=== PATIENT | male | born 1950 | race Caucasian/White ===

== ENCOUNTER 2017-04-16 14:37 | Inpatient (IN) | payer MEDICARE, OTHER ==
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
--- NOTE | ~2017-04-16 | EKG ---
PATIENT: ADAM BEVERLY UNIT #: [id number] Ventricular Rate: 65 BPM Atrial Rate: 65 BPM P-R Interval: 166 ms QRS Duration: 94 ms Q-T Interval: 412 ms QTC Calculation(Bezet): 428 ms P [place]: 60 degrees Calculated R [place]: -21 degrees Calculated T [place]: 39 degrees Diagnosis Line: Normal sinus rhythm Diagnosis Line: Normal ECG Diagnosis Line: When compared with ECG of 07-DEC-2012 00:12, Diagnosis Line: T wave inversion no longer evident in Anterior Diagnosis Line: leads Diagnosis Line: Confirmed by ELIAZAR CORONA MD ([id number]) on Diagnosis Line: 04/17/2017 10:43:07 PM INTERPRETING MD: GARY
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
--- NOTE | ~2017-04-16 | CR150 ---
[facility] A Service [facility] RADIOLOGY TEXT RESULTS PATIENT: ADAM BEVERLY LOCATION: C4 453- : 50 UNIT #: [id number] AGE: [address]: Lissa Hilliard MD SEX: M ORDER DR: [id number] [address] [place], [place] [address] [id number] I MR#: [id number] Acc #: [id number] NAME: ADAM BEVERLY : 1950 SEX: M STUDY DATE/TIME: 04/18/2017 16:21 UNIT: C4B ROOM: [facility] STUDY DESCRIPTION: CR Hip Min 2 Views Lt Attending Physician: Lissa Hilliard M.D. Ordering Physician: Liborio Hernandez M.D. Primary Care Physician: Manuel North M.D. MEDICAL IMAGING REPORT This report is preliminary unless electronic signature is present EXAM Left hip 2 views COMPARISON Two views of the left hip dated April 16, 2017 INDICATION Intraoperative valuation for open reduction internal fixation of left femoral neck fracture. FINDINGS A total of 2 images were obtained. Total fluoro time was 1 minute and 32 seconds. Intraoperative images demonstrate 3 lag screws passing through the intertrochanteric region of the left femur and terminating in the femoral head. Femoral neck fracture appears anatomically aligned. No evidence of dislocation or hardware complication. The left hip appears anatomically aligned. IMPRESSION Intraoperative evaluation for open reduction internal fixation of a left femoral neck fracture. No evidence of complication. Dictated by... Blanco Friedman M.D. THIS IS AN ELECTRONICALLY VERIFIED REPORT Blanco Friedman M.D. at 04/23/2017 8:12 PM SANJAY/leeanna [facility] A Service [facility] RADIOLOGY TEXT RESULTS PATIENT: ADAM BEVERLY LOCATION: C4 : [birth year] UNIT #: [id number] AGE: [address]: Lissa Hilliard MD SEX: M ORDER DR: TD: 04/18/2017 23:08 JOB #: [id number] MEDICAL IMAGING REPORT Page 1 of 1 COPY
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
[~2017-04-16 14:37] MED LIST: ARIXTRA7.5 MG/0.6 SQ; ASPIRIN EC81 M1 PO; ASPIRIN PO; ASPIRIN81 M2 PO; CAL MAG ZINC +1 EAC1 PO; COUMADIN5 MG PO; LOVENOX40 MG/0.4 INJ; MULTI COMPLETE1 EACH PO; MULTIPLE VITAMI1 T11 PO; OS-CAL 500 + D500 MG PO; OSTEO BI-FLEX1 EAC1 PO; PANTOPRAZOLE SO40 MG PO; SAW PALMETTO PO; WARFARIN SODIUM10 M1 PO
[2017-04-16 15:31] LABS: BASOPHIL# 0.1 X10e3 (0-0.3); BASOPHIL% 1.1 % (0-2.5); DIFF IND YES; EOSINOPHIL# 0.2 X10e3 (0-0.7); HEMATOCRIT 24.6 % (38.0-50.0); HEMOGLOBIN 7.5 gm/dL (13.0-16.0); LYMPHOCYTE# 0.8 X10e3 (1.0-3.5); LYMPHOCYTE% 9.7 % (17.0-45.0); MEAN CELL VOLUME 66.6 FL (83-96); MEAN CORPUSCULAR HEMOGLOBIN 20.2 PG (28-34); MEAN CORPUSCULAR HGB CONC 30.4 g/dL (30-36); MEAN PLATELET VOLUME 6.9 FL (6.5-11.5); MONOCYTE# 0.4 X10e3 (0-1.0); MONOCYTE% 4.3 % (3.0-12.0); NEUTROPHIL# 6.9 X10e3 (1.5-7.1); NEUTROPHIL% 82.9 % (40-75); PLATELET COUNT 285 X10e3 (140-420); RED CELL DISTRIBUTION WIDTH 17.5 % (11.0-15.5); WHITE BLOOD COUNT 8.4 X10e3 (4.0-10.5)
[2017-04-16 15:38] LABS: INR 1.4; PARTIAL THROMBOPLASTIN TIME 21.9 SECONDS (23.5-31.3); PROTHROMBIN TIME (PATIENT) 15.4 SECONDS (9.6-11.5)
[2017-04-16 15:56] LABS: ACANTHOCYTES PRESENT; ANISOCYTOSIS MOD; BUN/CREATININE RATIO 13.63; CALCIUM SERUM 9.3 mg/dL (8.4-10.2); CREATININE SERUM 1.1 mg/dL (0.6-1.4); GLOM FILT RATE Estimated 69.6 mL/min (>60); HYPOCHROMIA MOD; MICROCYTOSIS MOD; PLATELET ESTIMATE NORMAL (NORMAL); POTASSIUM 3.9 mmol/L (3.5-5.1)
[2017-04-16 15:57] LABS: OVALOCYTES PRESENT; POIKILOCYTOSIS MOD
[2017-04-16 15:59] LABS: SCHISTOCYTES PRESENT; TEAR DROP CELLS PRESENT
[2017-04-16] MEDS ORDERED: COUMADIN PO (21:04)
[2017-04-16] MEDS ORDERED: PANTOPRAZOLE SO40 MG PO (21:05)
[2017-04-16] MEDS ORDERED: CENTURY ADULTS1 EACH PO (21:07)
[2017-04-16] MEDS ORDERED: CALCIUM MAGNES1 EACH (21:07)
[2017-04-16] MEDS ORDERED: [UNRECOGNIZED DRUG - REMARK] (21:08)
[2017-04-17 06:22] LABS: URINE SOURCE CLEAN CATCH
[2017-04-17 06:29] LABS: URINE APPEARANCE CLEAR; URINE BILIRUBIN NEG (NEG); URINE BLOOD NEG (NEG); URINE COLOR YELLOW; URINE GLUCOSE NEG (NEG); URINE KETONE 1+ (NEG); URINE LEUKOCYTE ESTERASE NEG (NEG); URINE NITRATE NEG (NEG); URINE PH 7.5 (5-8); URINE PROTEIN NEG (NEG); URINE SPECIFIC GRAVITY 1.022 (1.003-1.035)
[2017-04-17 08:04] LABS: BASOPHIL# 0.2 X10e3 (0-0.3); BASOPHIL% 3.5 % (0-2.5); EOSINOPHIL# 0.4 X10e3 (0-0.7); EOSINOPHIL% 5.4 % (0.0-7.0); HEMATOCRIT 28.6 % (38.0-50.0); HEMOGLOBIN 8.8 gm/dL (13.0-16.0); LYMPHOCYTE# 0.7 X10e3 (1.0-3.5); LYMPHOCYTE% 10.7 % (17.0-45.0); MEAN CELL VOLUME 69.5 FL (83-96); MEAN CORPUSCULAR HEMOGLOBIN 21.3 PG (28-34); MEAN CORPUSCULAR HGB CONC 30.6 g/dL (30-36); MEAN PLATELET VOLUME 6.7 FL (6.5-11.5); MONOCYTE# 0.5 X10e3 (0-1.0); MONOCYTE% 7.6 % (3.0-12.0); NEUTROPHIL% 72.8 % (40-75); PLATELET COUNT 219 X10e3 (140-420); RED BLOOD COUNT 4.11 X10e (3.90-5.60); RED CELL DISTRIBUTION WIDTH 20.1 % (11.0-15.5); WHITE BLOOD COUNT 6.9 X10e3 (4.0-10.5)
[2017-04-17 08:07] LABS: DIFF IND NO
[2017-04-17 08:18] LABS: INR 1.7; PROTHROMBIN TIME (PATIENT) 18.6 SECONDS (9.6-11.5)
[2017-04-17 08:33] LABS: CALCIUM SERUM 8.5 mg/dL (8.4-10.2); GLOM FILT RATE Estimated 78.1 mL/min (>60); POTASSIUM 3.8 mmol/L (3.5-5.1)
[2017-04-18 05:01] LABS: HEMATOCRIT 29.1 % (38.0-50.0); MEAN CELL VOLUME 68.6 FL (83-96); MEAN CORPUSCULAR HEMOGLOBIN 21.1 PG (28-34); MEAN CORPUSCULAR HGB CONC 30.8 g/dL (30-36); MEAN PLATELET VOLUME 6.7 FL (6.5-11.5); RED BLOOD COUNT 4.24 X10e (3.90-5.60); RED CELL DISTRIBUTION WIDTH 20.4 % (11.0-15.5); WHITE BLOOD COUNT 8.8 X10e3 (4.0-10.5)
[2017-04-18 06:05] LABS: ALBUMIN SERUM 3.2 g/dL (3.5-5.0); BILIRUBIN,TOTAL 2.3 mg/dL (0.2-2.0); CALCIUM SERUM 8.4 mg/dL (8.4-10.2); CREATININE SERUM 0.9 mg/dL (0.6-1.4); GLOM FILT RATE Estimated 88.7 mL/min (>60); POTASSIUM 3.8 mmol/L (3.5-5.1); PROTEIN TOTAL SERUM 6.6 g/dL (6.0-8.3)
[2017-04-18 10:06] LABS: INR 1.5; PROTHROMBIN TIME (PATIENT) 16.3 SECONDS (9.6-11.5)
[2017-04-19 03:28] LABS: BASOPHIL% 0.1 % (0-2.5); EOSINOPHIL% 0.1 % (0.0-7.0); HEMATOCRIT 28.5 % (38.0-50.0); HEMOGLOBIN 8.6 gm/dL (13.0-16.0); LYMPHOCYTE# 0.6 X10e3 (1.0-3.5); LYMPHOCYTE% 8.3 % (17.0-45.0); MEAN CELL VOLUME 69.6 FL (83-96); MEAN CORPUSCULAR HGB CONC 30.3 g/dL (30-36); MEAN PLATELET VOLUME 7.2 FL (6.5-11.5); MONOCYTE# 0.7 X10e3 (0-1.0); MONOCYTE% 8.8 % (3.0-12.0); NEUTROPHIL# 6.2 X10e3 (1.5-7.1); NEUTROPHIL% 82.7 % (40-75); PLATELET COUNT 231 X10e3 (140-420); RED BLOOD COUNT 4.09 X10e (3.90-5.60); RED CELL DISTRIBUTION WIDTH 20.9 % (11.0-15.5); WHITE BLOOD COUNT 7.4 X10e3 (4.0-10.5)
[2017-04-19 03:29] LABS: DIFF IND NO
[2017-04-19 03:45] LABS: INR 1.4; PROTHROMBIN TIME (PATIENT) 14.5 SECONDS (9.6-11.5)
[2017-04-19 03:53] LABS: CREATININE SERUM 1.2 mg/dL (0.6-1.4); GLOM FILT RATE Estimated 62.7 mL/min (>60); POTASSIUM 4.5 mmol/L (3.5-5.1)
[2017-04-20 04:05] LABS: INR 1.2; PROTHROMBIN TIME (PATIENT) 12.7 SECONDS (9.6-11.5)
[2017-04-20 04:13] LABS: BUN/CREATININE RATIO 17.77; CALCIUM SERUM 7.8 mg/dL (8.4-10.2); CREATININE SERUM 0.9 mg/dL (0.6-1.4); GLOM FILT RATE Estimated 88.7 mL/min (>60)
[2017-04-20 08:12] LABS: BASOPHIL# 0.1 X10e3 (0-0.3); BASOPHIL% 1.2 % (0-2.5); EOSINOPHIL# 0.7 X10e3 (0-0.7); EOSINOPHIL% 8.2 % (0.0-7.0); HEMATOCRIT 28.8 % (38.0-50.0); LYMPHOCYTE% 25.3 % (17.0-45.0); MEAN CELL VOLUME 69.6 FL (83-96); MEAN CORPUSCULAR HEMOGLOBIN 21.8 PG (28-34); MEAN CORPUSCULAR HGB CONC 31.3 g/dL (30-36); MEAN PLATELET VOLUME 6.7 FL (6.5-11.5); MONOCYTE# 0.8 X10e3 (0-1.0); MONOCYTE% 9.8 % (3.0-12.0); NEUTROPHIL# 4.4 X10e3 (1.5-7.1); NEUTROPHIL% 55.5 % (40-75); PLATELET COUNT 263 X10e3 (140-420); RED BLOOD COUNT 4.14 X10e (3.90-5.60); RED CELL DISTRIBUTION WIDTH 21.1 % (11.0-15.5)
[2017-04-20 08:18] LABS: DIFF IND NO
[2017-04-21 04:29] LABS: BASOPHIL# 0.1 X10e3 (0-0.3); BASOPHIL% 1.9 % (0-2.5); EOSINOPHIL# 0.8 X10e3 (0-0.7); EOSINOPHIL% 11.4 % (0.0-7.0); HEMATOCRIT 29.3 % (38.0-50.0); HEMOGLOBIN 8.9 gm/dL (13.0-16.0); LYMPHOCYTE# 1.4 X10e3 (1.0-3.5); LYMPHOCYTE% 20.6 % (17.0-45.0); MEAN CELL VOLUME 69.8 FL (83-96); MEAN CORPUSCULAR HEMOGLOBIN 21.3 PG (28-34); MEAN CORPUSCULAR HGB CONC 30.5 g/dL (30-36); MEAN PLATELET VOLUME 7.2 FL (6.5-11.5); MONOCYTE# 0.7 X10e3 (0-1.0); NEUTROPHIL# 3.8 X10e3 (1.5-7.1); NEUTROPHIL% 56.1 % (40-75); PLATELET COUNT 269 X10e3 (140-420); RED BLOOD COUNT 4.19 X10e (3.90-5.60); WHITE BLOOD COUNT 6.8 X10e3 (4.0-10.5)
[2017-04-21 04:31] LABS: DIFF IND NO
[2017-04-21 04:41] LABS: INR 1.1
[2017-04-21 04:49] LABS: BUN/CREATININE RATIO 16.25; CALCIUM SERUM 8.3 mg/dL (8.4-10.2); CREATININE SERUM 0.8 mg/dL (0.6-1.4); GLOM FILT RATE Estimated 93.1 mL/min (>60); POTASSIUM 4.2 mmol/L (3.5-5.1)
== END 2017-04-21 15:07 | DRG 956 ==
LOC: CED 14:37 → CEDOF 20:12 → C3A PCU 20:41 → CED 20:41 → CEDOF 20:41 → C4B 20:41 → CEDOF 22:28 → C3A PCU 22:28 → C4B 04-18 17:35
PROVIDERS: Emergency Medicine; Internal Medicine; Orthopaedic Surgery
PROC: 30233N1 Transfusion of Nonautologous Red Blood Cells into Peripheral Vein, Percutaneous Approach (ICD-10-PCS; 2017-04-17)
PROC: 0QS734Z Reposition Left Upper Femur with Internal Fixation Device, Percutaneous Approach (ICD-10-PCS; principal; 2017-04-18 15:00)
DX: S72.002A Fracture of unspecified part of neck of left femur, initial encounter for closed fracture (principal); S32.9XXA Fracture of unspecified parts of lumbosacral spine and pelvis, initial encounter for closed fracture; E87.1 Hypo-osmolality and hyponatremia; V18.4XXA Pedal cycle driver injured in noncollision transport accident in traffic accident, initial encounter; Z87.891 Personal history of nicotine dependence; Z86.711 Personal history of pulmonary embolism; Z79.01 Long term (current) use of anticoagulants; D50.9 Iron deficiency anemia, unspecified; E83.51 Hypocalcemia
CPT/HCPCS: 36415; 71010; 73502; 73700; 76000; 80048; 80053; 81003; 85025; 85027; 85610; 85730; 86850; 86900; 86901; 86923; 87086; 93005; 94760; 96361; 96374; 97110; 97116; 97161; 97166; 97530; 97535; 99285; C1713; G8978-GP; G8979-GP; G8987-GO; G8988-GO; J0690; J1100; J1170; J1650; J1885; J2250; J2270; J2765; P9016